=== PATIENT | male | born 1965 | race Caucasian/White ===

== ENCOUNTER 2017-03-15 16:45 | Emergency (ER) | payer BC ==
[~2017-03-15] VITALS: Ht 180.3 cm; Wt 74.1 kg
[2017-03-15] MEDS ORDERED: KEFLEX500 MG PO (18:19)
[2017-03-15 18:34] VITALS: BP 143/91
== END 2017-03-15 18:35 | disposition home or self-care (01) ==
LOC: EME 16:45
DX: S62.663B Nondisplaced fracture of distal phalanx of left middle finger, initial encounter for open fracture (principal); S61.313A Laceration without foreign body of left middle finger with damage to nail, initial encounter; W29.8XXA Contact with other powered hand tools and household machinery, initial encounter
CPT/HCPCS: 73140; 99281; 99283